=== PATIENT | female | born 2005 | race Caucasian/White ===

== ENCOUNTER 2024-06-28 20:49 | Emergency (ER) | payer OTHER, SELFPAY ==
[2024-06-28 20:55] VITALS: BP 121/78
--- NOTE | 2024-06-28 21:24 | ED.GENMED ---
History of Present Illness
General
Chief Complaint: Allergic Reaction
Time Seen by Provider: 06/28/24 21:24
History of Present Illness
History of Present Illness:
TIME OF INITIAL ENCOUNTER: 9:30 PM
HPI:
The patient was eating at a restaurant. She was assured by the restaurant that there was no peanuts but was later told that there was some sunflower seeds in the past that she was eating. She developed a sensation of discomfort in the neck. She
did take Benadryl 50 mg prior to arrival. She did not take her EpiPen. Overall she feels improved.
EXAM:
GENERAL: Well appearing in no distress
HEENT: Moist oral mucosa, the posterior oropharynx is widely patent
CARDIOVASCULAR: No murmurs, normal heart rate, regular rhythm, No chest wall tenderness
PULMONARY: No respiratory distress, breath sounds are clear and equal
ABDOMEN: Soft with no peritoneal signs, no tenderness
NEUROLOGIC: Excellent strength all extremities, no coordination deficits
PSYCHIATRIC: Appropriate mental status, normal insight and judgement
EXTREMITIES: Nontender, no edema, moves all extremities equally
SKIN: No rash, no lesions
NUMBER AND COMPLEXITY OF PROBLEMS ADDRESSED AT THE ENCOUNTER
� Chronic conditions affecting care: Has a peanut allergy
� Acute Exacerbation and/or Progression of Chronic Illness: This is an acute problem
� Differential Diagnosis includes: Not allergy, other food allergy
AMOUNT AND/OR COMPLEXITY OF DATA TO BE REVIEWED AND ANALYZED
� I performed an independent evaluation of and my interpretation is:
EKG:
CT:
X-rays:
Laboratory Studies: Labs not indicated
Other:
� Review of other/old records: No old records available for review
� Clinical information was obtained by an independent historian: I spoke to parents at bedside
� Prescriptions/Medications Considered but not given: Considered and offered appendectomy however the patient declines
� Further testing considered but not performed:
RISK OF COMPLICATIONS AND/OR MORBIDITY OR MORTALITY OF PATIENT MANAGEMENT
� Social determinants of health affecting care: Does not live in this area
� Discussion with other providers:
� Escalation of care including admission/observation vs risk of discharge considered: The patient is very well-appearing. We gave a one-time dose of steroids.
ANY OTHER UPDATES:
9:50 PM: I reevaluated patient and she continues to feel improved to the point that she has virtually no symptoms. 1 dose of steroids given.
Phy Exam
Physical Exam
Physical Exam:
See HPI
Course
Orders/Labs/Results
Orders:
Orders
06/28/24 21:31
Prednisone [Deltasone] 20 mg PO NOW STA
Vital Signs
Initial and Last Documented VS:
Initial Vital Signs
Temp Pulse Resp BP Pulse Ox
98.6 F 74 20 121/78 100
06/28/24 20:55 06/28/24 20:55 06/28/24 20:55 06/28/24 20:55 06/28/24 20:55
Last Documented Vital Signs
Temp Pulse Resp BP Pulse Ox
98.6 F 74 20 121/78 98
06/28/24 20:55 06/28/24 20:55 06/28/24 20:55 06/28/24 20:55 06/28/24 20:55
*Critical Care Note
Total Time (30-74mins, 75-104mins- exclusive of procedures): Not Applicable
ED Attending Note
-
Portions of this chart may have been created with voice recognition software.� Occasional wrong word or��sound alike� substitutions may have occurred due to the inherent limitations of voice recognition software.
Discharge Plan
Departure
Referrals:
NONE,* [Family Provider] -
Interventions
Interventions:
*Risk Screen - Suicide Last Done: 06/28/24 20:55
*General Assessment Last Done: 06/28/24 20:55
*Neglect/Abuse Screening Last Done: 06/28/24 20:55
ED- Fall Risk Assessment Last Done: 06/28/24 20:55
*ED COVID-19 Vaccine History Last Done: 06/28/24 20:55
Discharge Date and Time
Print Language: KOSOVAN
[2024-06-28] MEDS: DELTASONE 20 MG PO (21:58)
[2024-06-28 22:29] VITALS: BP 111/71
== END 2024-06-28 22:30 | disposition home or self-care (01) ==
LOC: EMR 20:49
PROVIDERS: EMERGENCY PHYSICIAN Emergency Medicine
DX: T78.40XA Allergy, unspecified, initial encounter (principal); Y92.9 Unspecified place or not applicable
CPT/HCPCS: 99282